=== PATIENT | male | born 1975 | race Caucasian/White ===

== ENCOUNTER → 2024-08-16 09:04 | Outpatient (BNVA) | payer OTHER, SELFPAY | PROVIDERS: PCP Physician Assistant; Visit Provider Physician Assistant | DX: R73.01 Impaired fasting glucose (principal); R22.2 Localized swelling, mass and lump, trunk; Z72.0 Tobacco use | CPT/HCPCS: 96127 ==

== ENCOUNTER 2024-08-16 09:52 | Outpatient (REF) | payer OTHER, SELFPAY ==
--- OUTSIDE RECORDS SUMMARY | 2024-08-16 10:41 | XMS_ITS | Clinical Summary ---
Author Organization [facility] ity Address [address] [place] [address] Care Team Providers Care [employer] Director Name Role Phone Unavailable Primary Care Provider Unavailabl e Surgical History Surgery Date Site/Laterality Comments UMBILICAL HERNIA REPAIR PROCEDURE:UMBILICAL HERNIA REPAIR Social History Tobacco Use Types Packs/Day Years Used Date Smoking Tobacco: Every Day Cigarettes Smokeless Tobacco: Never Alcohol Use Standard Drinks/Week Comments Yes 0 (1 standard drink = 0.6 oz pur e alcohol) Sex and Gender Information Value Date Recorded Sex Assigned at Not on file Gender Identity Not on file Sexual Orientation Not on file Obstetrics History Plan of Treatment Health Maintenance Due Date Last Done Comments DTaP,Tdap,and Td Vaccines (1 - Tdap) 1993 Hepatitis B Vaccines (1 of 3 - 19+ 3-dose series) 1993 COVID-19 Vaccine (2023-2 5 season) 2024 Influenza Vaccine (#1) 2024 Zoster Vaccines (1 of 2) 2024 HIB Vaccines Aged Out No longer eligi ble based on patient's age to complete this topic HPV Vaccines Aged Out No longer eligi ble based on patient's age to complete this topic Hepatitis A Vaccines Aged Out No long er eligible based on patient's age to complete this topic IPV Vaccines Aged Out No longer eligi ble based on patient's age to complete this topic MMR Vaccines Aged Out No longer eligi ble based on patient's age to complete this topic Meningococcal ACWY Vaccine Aged Out N o longer eligible based on patient's age to complete this topic Pneumococcal Vaccine: Pediat rics (0 to 5 Years) and At-Risk Patients (6 to 64 Years) Aged Out No longer eligible b ased on patient's age to complete this topic RSV Immunization Patients Un cyndee 20 months Aged Out No longer eligible b ased on patient's age to complete this topic Varicella Vaccines Aged Out No longer eligible based on patient's age to complete this topic
--- OUTSIDE RECORDS SUMMARY | 2024-08-16 10:41 | XMS_ITS | Clinical Summary ---
Author Organization [facility] Address [address] [place] [address] Care Team Providers Care Gambling Counsellor Name Role Phone Unavailable Primary Care Provider Unavailabl e Allergies No known active allergies Medications No known medications Social History Tobacco Use Types Packs/Day Years Used Date Smoking Tobacco: Every Day Cigarettes 1 20 Smokeless Tobacco: Never Alcohol Use Standard Drinks/Week Comments Yes 0 (1 standard drink = 0.6 oz pur e alcohol) monthly Sex and Gender Information Value Date Recorded Sex Assigned at Not on file Gender Identity Not on file Sexual Orientation Not on file Last Filed Vital Signs Vital Sign Reading Time Taken Comments Blood Pressure 120/80 09/14/2018 11:12 AM EST Pulse - - Temperature - - Respiratory Rate - - Oxygen Saturation - - Inhaled Oxygen Concentration - - Weight 87.1 kg (192 lb) 09/14/2018 11:12 AM EST Height 190.5 cm (6' 3 ) 09/14/2018 11:12 AM EST Body Mass Index 24 09/14/2018 11:12 AM EST Plan of Treatment Health Maintenance Due Date Last Done Comments Hepatitis B Vaccines (1 of 3 - 3-dose series) 1974 Hepatitis C Screening 1974 COVID-19 Vaccine (#1) 1974 Pneumococcal Vaccine (1 of 2 - PCV) 1980 Depression Screening 1986 Preventative Health Evaluation 1992 DTap / Tdap / Td (1 - Tdap) 1993 Colon Cancer Screening (Colonoscopy) 2019 Influenza Vaccine (#1) 2024 Shingrix-Zoster Vaccine (1 of 2) 2024 RSV Ped < 20 months Aged Out No longe r eligible based on patient's age to complete this topic
[2024-08-16 10:52] LABS: MANUAL DIFF FLAG NO
[2024-08-16 10:59] LABS: Basophils Percent Auto 0.5 % (0-2); Eosinophils Percent Auto 0.5 % (0-4); Hematocrit 43.4 % (42.0-52.0); Hemoglobin 15.2 g/dl (14.0-18.0); Imm Gran Abs Auto 0.03 X10*3/uL (0.00-0.03); Imm Gran Pct Auto 0.5 % (0.0-0.4); Lymphocytes Absolute Auto 1.4 X10*3/uL (1.2-4.9); Lymphocytes Percent Auto 24.6 % (20-40); Mean Corpuscular Hemoglobin 33.7 pg (27.0-33.0); Mean Corpuscular Volume 96.2 fL (80.0-98.0); Monocytes Absolute Auto 0.5 X10*3/uL (0.1-1.2); Monocytes Percent Auto 8.8 % (2-11); Neutrophils Absolute Auto 3.6 x10*3/uL (2.0-8.3); Neutrophils Percent Auto 65.1 % (45-73); Platelet Count 225 X10*3/uL (160-400); Red Blood Count 4.51 X10*6/uL (4.60-5.80); Red Cell Distribution Width 12.1 % (11.0-16.0); White Blood Count 5.6 X10*3/uL (4.8-10.8)
[2024-08-16 11:13] LABS: Estimated Average Glucose 91 mg/dL; Hemoglobin A1C 117.5647 umol/L; Hemoglobin A1c % 4.8 % (<6.0)
[2024-08-16 11:19] LABS: Alanine Aminotransferase 43 U/L (0-40); Albumin Level 4.5 g/dL (3.5-5.0); Alkaline Phosphatase 73 U/L (39-117); Anion Gap 11 (12-20); Aspartate Amino Transferase 26 U/L (5-37); Bilirubin Total 0.8 mg/dL (0.0-1.0); Blood Urea Nitrogen 15 mg/dL (9-16); Calcium 9.1 mg/dL (8.4-10.2); Carbon Dioxide 27 mmol/L (22-29); Chloride 107 mmol/L (96-108); Cholesterol 197 mg/dL (<200); Estimated Glomerular Filt Rate > 60; Glucose Fasting 100 mg/dL (60-99); HDL Cholesterol 56 mg/dL (>40); LDL Cholesterol Calculated 119 mg/dL (<100); Potassium 4.3 mmol/L (3.3-5.1); Sodium 141 mmol/L (135-145); Total Protein 7.6 g/dL (6.5-8.0); Triglycerides 114 mg/dL (<150)
[2024-08-16 11:21] LABS: Appearance Urine Clear; Color Urine Yellow; Glucose Urine UA Negative (Negative); Leukocyte Esterase Urine Negative (Negative); Nitrite Urine Negative (Negative); Specific Gravity - Urine 1.025 (1.005-1.025); Urine Blood Negative (Negative); Urine Ketones Negative (Negative); Urine Protein Negative (Neg-Trace)
[2024-08-16 11:33] LABS: Prostate Specific Antigen Scr 0.63 ng/mL (<0.05-4.0)
[2024-08-16 11:40] LABS: TSH reflex Free T4 2.31 uIU/mL (0.32-4.0)
== END 2024-08-16 09:53 | disposition home or self-care (01) ==
LOC: HO.WFDLDS 09:52
PROVIDERS: Visit Provider Physician Assistant
DX: R73.01 Impaired fasting glucose (principal); Z01.89 Encounter for other specified special examinations; Z13.220 Encounter for screening for lipoid disorders; Z12.5 Encounter for screening for malignant neoplasm of prostate
CPT/HCPCS: 36415; 80053; 80061; 81003; 83036; 84153; 84443; 85025

== ENCOUNTER 2025-02-02 10:34 | Outpatient (AMB) | payer OTHER, SELFPAY ==
--- NOTE | 2025-02-02 07:51 | MHC.OFFVIS ---
Intake Visit Reasons: Curret Smoker Allergies No Known Allergies Allergy (Verified 08/16/24 08:41) HPI HPI Golden Smoker: Details: Initial visit for this 49yo smoker with a 30+PYH. Patient started smoking at age 14 for 35 years at 1ppd. . Denies marijuana use. Denies second hand smoke exposure. 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 . Denies known family history of lung cancer. Denies personal history of cancers. Denies chest CT in last year. . Denies recent travel outside the [place]. Denies recent respiratory illness or recent hospitalization for respiratory issues. Reports testing positive for COVID. Denies receiving COVID Vaccine. . Denies fever, chills, new/worsening cough, hemoptysis, hoarseness or dysphagia. Denies significant chest pain, significant dyspnea or unintentional weight loss. Patient Lung Cancer Screening Questionnaire reviewed with patient by provider. . Shared Decision Making Completed. Patient meets criteria. Discussed in detail with patient, the risk vs benefit of LDCT screening. Patient consents to proceed with scan. Discussed smoking cessation. [facility] Medical History (Updated 02/02/25 @ 10:42 by Corrie Lockhart PA-C) Nicotine dependence, cigarettes, uncomplicated Surgical History (Updated 02/02/25 @ 10:42 by Corrie Lockhart PA-C) History of umbilical hernia repair History of colonoscopy Social History (Updated 02/02/25 @ 10:34 by Corrie Lockhart PA-C) Housing: House Alcohol intake: current Patient Tobacco Use Status: Current everyday Tobacco user Tobacco use type: Cigarette Cigarette Packs Per Day: 1 Years Smoked: (onset 14yo, 1ppd x 35yrs, 30+pyh) e-Cigarette/Vaping Use: Never Used Second Hand Smoke Exposure: No Substance Use Type: Crack/Cocaine and Marijuana service: No Current occupational status: employed 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 - Patient meets criteria for LDCT for lung cancer screening purposes and is asymptomatic. - Smoking cessation counseling offered. Patients can always call [phone]. - Will arrange for a LDCT scan of the chest for screening purposes at [facility]. - Risks, benefits, and alternatives were discussed in detail and the patient agrees to proceed. - Risks discussed include but are not limited to: radiation exposure, anxiety during testing and while awaiting results, false negatives, false positives and possibility of additional intervention such as further imaging or surgical procedures for benign disease. - Benefits are obviously detection of lung cancer at an early stage which can lead to improved outcomes. - Discussed the importance of screening program compliance with adherence to yearly LDCT scan as scheduled - or sooner interval scans for personalized screening regimen. - Discussed follow up plan. Our office will send a letter discussing results and if needed set up phone call and office visit based on CT findings. - Patient educated on results categorization and the management decisions for suspicious findings potentially found on the screening LDCT scan. Any patient with a Lung RADS score of 3 or 4 will be reviewed by a multidisciplinary team at [facility] to form a plan of action in regards to scan findings. - If further work up is warranted for a suspicious lung finding this will be followed by the Lung Cancer Screening program in conjunction with the Thoracic Surgery Department at [facility]. - A copy of the office note and LDCT will be sent to the patient's PCP - as well as documentation on any associated further plans of care. - Incidental findings on LDCT are the PCP's responsibility. These findings are indicated with an S finding on the LDCT Assessment. A note discussing the findings will be sent to the PCP who is then responsible for further management. - All questions answered.? Coding Level of Care Code Lung Cancer Screening G0296 Diagnoses Nicotine dependence, cigarettes, uncomplicated F17.210
--- OUTSIDE RECORDS SUMMARY | 2025-02-02 10:44 | XMS_ITS | Clinical Summary ---
Author Organization [facility] Address [address] [place], [place] [id number] Care Team Providers Care Fitter Placer Name Role Phone Unavailable Primary Care Provider [...] Tdap) 1993 Colon Cancer Screening (Colonoscopy) 2019 Shingrix-Zoster Vaccine (1 of 2) 2024 Influenza Vaccine (#1) 2025 RSV Ped < 20 months Aged Out No longe r eligible based on patient's age to complete this topic
--- OUTSIDE RECORDS SUMMARY | 2025-02-02 10:44 | XMS_ITS | Clinical Summary ---
Author Organization [facility] ity Address [address] [place] [address] Care Team Providers Care Generator Worker Name Role Phone Unavailable Primary Care Provider [...] Recorded Sex Assigned at Not on file Legal Sex Male 10:25 AM EST Gender Identity Not on file Sexual Orientation Not on file Obstetrics History Plan of Treatment Health Maintenance Due Date Last Done Comments DTaP,Tdap,and Td Vaccines (1 - Tdap) 1993 Hepatitis B Vaccines (1 of 3 - 19+ 3-dose series) 1993 COVID-19 Vaccine ( - 2023-2 5 season) 2024 Pneumococcal Vaccine: 50+ Ye ars (1 of 1 - PCV) 2024 Zoster Vaccines (1 of 2) 2024 Depression Screening 07/12/2024 Influenza Vaccine (#1) 2025 HIB Vaccines Aged Out No longer eligi [...] patient's age to complete this topic Meningococcal B Vaccine Aged Out No l onger eligible based on patient's age to complete this topic RSV Immunization Patients Un cyndee 20 months Aged Out No longer eligible b ased on patient's age to complete this topic Varicella Vaccines Aged Out No longer eligible based on patient's age to complete this topic
== END 2025-02-02 10:46 | disposition home or self-care (01) ==
PROVIDERS: PCP Physician Assistant; Referring Provider Physician Assistant; Visit Provider Physician Assistant Medical
DX: F17.210 Nicotine dependence, cigarettes, uncomplicated (principal)
CPT/HCPCS: G0296

== ENCOUNTER 2025-02-02 10:43 | Outpatient (REF) | payer OTHER, SELFPAY ==
--- NOTE | ~2025-02-02 | CT_ITS ---
EXAMINATION: CT LUNG SCREENING HISTORY: F17.210 - Nicotine dependence, cigarettes, uncomplicated TECHNIQUE: Low dose axial images were obtained from the sternal notch to upper abdomen without IV contrast per standard departmental protocol. Sagittal and coronal reformatted images were also obtained and reviewed. One or more of the following techniques was used for dose reduction: Automated exposure control, adjustment of the mA and/or kV according to patient size, use of iterative reconstruction technique. DLP: 68 mGy-cm COMPARISON: There are no prior studies available for comparison. FINDINGS: Lung nodules: No pulmonary nodules are identified. Emphysema: mild Coronary Calcification: none Aortic Arch Calcification: mild Potentially Significant Incidentals : none Additional Chest Findings: There is no pleural or pericardial effusion. No mediastinal or axillary lymphadenopathy is identified. Visualized upper abdomen: The visualized portions of the liver, spleen, and adrenals have an unremarkable unenhanced appearance. CT/CT lung screening IMPRESSION: No suspicious pulmonary nodules are identified. LUNG-RADS ASSESSMENT: Lung-RADS 1: Negative MANAGEMENT: Continue annual screening with LDCT in 12 months Category S: N/A Electronically signed by: Sudheer Novak MD 02/02/2025 11:15 AM EDT
== END 2025-02-02 10:44 | disposition home or self-care (01) ==
LOC: HO.CT 10:43
PROVIDERS: PCP Physician Assistant; Visit Provider Physician Assistant Medical
DX: Z12.2 Encounter for screening for malignant neoplasm of respiratory organs (principal); F17.210 Nicotine dependence, cigarettes, uncomplicated
CPT/HCPCS: 71271; G0296

== ENCOUNTER → 2025-02-02 10:44 | Outpatient (BNV) | payer OTHER, SELFPAY | PROVIDERS: PCP Physician Assistant; Visit Provider Radiology Diagnostic Radiology | DX: F17.210 Nicotine dependence, cigarettes, uncomplicated (principal) | CPT/HCPCS: 71271 ==

== ENCOUNTER 2025-03-14 12:49 | Outpatient (AMB) | payer OTHER, SELFPAY ==
--- NOTE | 2025-03-14 13:01 | A.OFFPC_ITS ---
Vital Signs 03/14/25 13:03 Height 6 ft 3 in Weight 223 lb 4 oz BMI 27.9 Blood Pressure Location Lt brachial Position Sitting Respiration 16 Pulse Source Pulse Oximeter Intake Visit Reasons: skin rash Intake Note: Skin rash under the armpits. Seeing concrete buster operator 03/28/25. Coater Operator Required: No Allergies No Known Allergies Allergy (Verified 03/14/25 13:01) Medication List - Last Reconciled 03/14/25 by Mallorie Pride PA-C aspirin 81 mg PO DAILY diltiazem HCl CD 120 mg PO DAILY Tobacco use date assessed: 08/16/24 Dental Screening Dental Screen Date: 08/16/24 HPI skin rash HPI Details Patient is a 49-year-old male presenting today for a follow up. He is transferring from [facility]. He was last seen by myself about a year ago for a physical exam. He went to [facility] 3 weeks ago and was diagnosed with AFib. He was treated initially with IV diltiazem and discharged with diltiazem 120 mg daily. His CHADS-VASc score was 0. He was told to start aspirin and to follow up with Cardiology. He had presented to the ER because he was having palpitations. Since the ER he is any palpitations but he tells me today that he has had years of palpitations his son AFib. I did refer him to Cardiology Blood pressure today in the office is 120/80. [facility] Medical History (Updated 03/14/25 @ 13:43 by Mallorie Pride PA-C) Nicotine dependence, cigarettes, uncomplicated Surgical History History of umbilical hernia repair History of colonoscopy Social History (Updated 03/14/25 @ 13:12 by Lina Kyle CMA) Housing: House Alcohol intake: current Patient Tobacco Use Status: Current everyday Tobacco user Tobacco use type: Cigarette Cigarette Packs Per Day: 1 Years Smoked: (onset 14yo, 1ppd x 35yrs, 30+pyh) e-Cigarette/Vaping Use: Never Used Second Hand Smoke Exposure: No Substance Use Type: Crack/Cocaine and Marijuana service: No Current occupational status: employed 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 Current occupational exposures/hazards: Yes Cognitive needs: No Hearing needs: No Vision needs: No Questionnaire Thrive Questionnaire Date Thrive assessed: 08/16/24 I am a: Patient What is your living situation today?: I have a steady place to live Within the past 12 months, did the food you bought not last and you didn't have the money to get more?: Never true Within the past 12 months, did you worry whether your food would run out before you got money to buy more?: Never true Do you have trouble paying for medicines?: No Do you have trouble getting transportation to medical appointments?: No Do you have trouble paying your heating and electricity bill?: No Do you have trouble taking care of your child, family member or friend?: No Do you have trouble with day-to-day activities such as bathing, preparing meals, shopping, managing finances, etc.?: No Are you currently unemployed and looking for a job?: No Are you interested in more education?: No Please select the resources that you would like help with: None Currently or been in a relationship where the following occur: No concerns reported THRIVE Score: 0 MAGGIE-7 AMB Questionnaire MAGGIE-7 Date MAGGIE - 7 assessed: 08/16/24 Source: Developed by Drs. Sudheer Khan, Kay Jama, Tj Mann and colleagues, with an educational marylou from [employer]. Physical exam (Primary Care) Vital Signs: Last Vital Signs Resp 16 03/14/25 13:03 BMI result Body Mass Index 27.9 Tobacco/Smoking Status: Tobacco use Status Tobacco use date assessed 08/16/24 03/14/25 13:06 Patient Tobacco Use Status Current everyday Tobacco 03/14/25 13:12 Tobacco use type Cigarette 03/14/25 13:12 e-Cigarette/Vaping Use Never Used 03/14/25 13:12 Thrive Assessment: Date of Thrive Assessment Date Thrive assessed 08/16/24 03/14/25 13:06 Currently or been in a relationship where the following occur: No concerns reported Const Orientation/consciousness: patient oriented x3 HENMT Ears: hearing grossly normal bilaterally Neck Thyroid: Thyroid normal Lymphatic: no lymphadenopathy noted Resp Auscultation: clear to auscultation bilaterally Cardio Rate: regular rate Rhythm: regular rhythm Heart sounds: S1 normal heart sound present and S2 normal heart sound present GI Inspection: Yes normal to inspection Palpation (GI): Soft to palpation and Other GI palpation findings present (nontender, no cva tenderness) Auscultation: normoactive bowel sounds Rectal Exam - Male: Yes deferred Skin General skin exam: no rashes or lesions noted Neuro General: patient oriented x3, gait normal and no focal motor deficits Coding Level of Care Code Est Pt Level 4 (79645) Complex EM visit Add On G2211 Diagnoses IFG (impaired fasting glucose) R73.01 Nicotine dependence, cigarettes, uncomplicated F17.210 Afib I48.91 Skin tag L91.8 Assessment & Plan Assessment & Plan (1) IFG (impaired fasting glucose): Comment: (FBS 100 on 08/16/24) Code(s): R73.01 - Impaired fasting glucose Category: Medical Plan: Labs ordered (2) Nicotine dependence, cigarettes, uncomplicated: Comment: (onset 14yo, 1ppd x 35yrs, 30+pyh) Code(s): F17.210 - Nicotine dependence, cigarettes, uncomplicated Category: Medical Plan: We did discuss smoking cessation. (3) Afib: Code(s): I48.91 - Unspecified atrial fibrillation Category: Medical Plan: Currently appears to be in normal sinus rhythm. Has not noticed any palpitations since being on diltiazem. Has been referred to Cardiology (4) Skin tag: Code(s): L91.8 - Other hypertrophic disorders of the skin Category: Medical Plan: Referred to dermatology Orders: Orders TSH reflex Free T4 03/14/25 F17.210 - Nicotine dependence, cigarettes, uncomplicated, I48.91 - Unspecified atrial fibrillation, R73.01 - Impaired fasting glucose Complete Blood Count Auto Diff 03/14/25 F17.210 - Nicotine dependence, cigarettes, uncomplicated, I48.91 - Unspecified atrial fibrillation, R73.01 - Impaired fasting glucose Comprehensive Met. Panel 03/14/25 F17.210 - Nicotine dependence, cigarettes, uncomplicated, I48.91 - Unspecified atrial fibrillation, R73.01 - Impaired fasting glucose Lipid Panel 03/14/25 F17.210 - Nicotine dependence, cigarettes, uncomplicated, I48.91 - Unspecified atrial fibrillation, R73.01 - Impaired fasting glucose Hemoglobin A1c 03/14/25 F17.210 - Nicotine dependence, cigarettes, uncomplicated, I48.91 - Unspecified atrial fibrillation, R73.01 - Impaired fasting glucose Referrals Dermatology Referral L91.8 - Other hypertrophic disorders of the skin, R21 - Rash and other nonspecific skin eruption Medications: New diltiazem HCl CD 120 mg PO DAILY 90 caps 2RF Patient Instructions: [facility]- [phone] Cardiology [phone] ? ?
[2025-03-14 13:03] VITALS: RESP 16; BMI 27.9
--- OUTSIDE RECORDS SUMMARY | 2025-03-14 15:14 | XMS_ITS | Clinical Summary ---
Author Organization [facility] Address [address] [place], [place] [id number] Care Team Providers Care Strapper Name Role Phone Unavailable Primary Care Provider [...]
--- OUTSIDE RECORDS SUMMARY | 2025-03-14 15:14 | XMS_ITS | Clinical Summary ---
Author Organization [facility] ity Address [address] [place] [address] Care Team Providers Care Forming Machine Upkeep Mechanic Name Role Phone Unavailable Primary Care Provider [...]
== END 2025-03-14 13:48 | disposition home or self-care (01) ==
LOC: HO.HMCFM 12:50
PROVIDERS: PCP Physician Assistant; Visit Provider Physician Assistant
DX: R73.01 Impaired fasting glucose (principal); F17.210 Nicotine dependence, cigarettes, uncomplicated; I48.91 Unspecified atrial fibrillation; L91.8 Other hypertrophic disorders of the skin